=== PATIENT | female | born 2000 | race Caucasian/White ===

== ENCOUNTER 2023-10-04 02:17 | Emergency (ER) | payer MEDICAID ==
[~2023-10-04] VITALS: Ht 167.6 cm; Wt 72.5 kg
[2023-10-04 02:50] VITALS: BP 109/76; PULSE 98; RESP 16; TEMP 98.4; O2SAT 100
[2023-10-04] MEDS: SODIUM CHLORIDE 0.9% 1,000 ML IV ONE (03:15)
[2023-10-04] MEDS: METOCLOPRAMIDE HCL 10MG/2ML VIAL IV ONE (03:15)
[2023-10-04] MEDS: DIPHENHYDRAMINE 50MG/ML VIAL IV ONE (03:15)
[2023-10-04 03:55] LABS: BASOPHILS % 0.3 % (0.0-2.0); EOSINOPHILS % 1.5 % (0.0-5.0); HEMATOCRIT. 35.9 % (36.0-48.0); LYMPHOCYTES % 18.9 % (20.0-50.0); MEAN CORPUSCULAR HEMOGLOBIN 29.5 pg (28.0-32.0); MEAN CORPUSCULAR HGB CONC 33.5 g/dL (31.0-37.0); MEAN PLATELET VOLUME 8.7 fl (7.4-10.4); MONOCYTES % 7.6 % (2.0-8.0); NEUTROPHILS % 71.7 % (40.0-76.0); PLATELET 377 x1000/uL (130-400); RED BLOOD CELL COUNT 4.08 mill/uL (4.2-5.4); RED CELL DISTRIBUTION WIDTH 14.9 % (11.6-14.6); WHITE BLOOD COUNT 10.1 x1000/uL (4.5-11.0)
[2023-10-04] MEDS: KETOROLAC 15MG/ML VIAL IV ONE (04:00)
[2023-10-04 04:10] LABS: ALANINE AMINOTRANSFERASE 26 IU/L (10-49); ALBUMIN 4.8 g/dL (3.2-4.8); ASPARTATE AMINOTRANSFERASE 17 IU/L (<34); BILIRUBIN TOTAL 0.2 mg/dL (0.1-1.0); CARBON DIOXIDE 24 mEq/L (21-32); CHLORIDE 106 mEq/L (98-107); CREATININE 0.7 mg/dL (0.6-1.0); GLUCOSE 120 mg/dL (70-105); POTASSIUM 3.9 mEq/L (3.5-5.1); PROTEIN TOTAL 8.3 g/dL (6.0-8.3); SODIUM 137 mEq/L (136-145); UREA NITROGEN BLOOD 12 mg/dL (9-23)
[2023-10-04] MEDS ORDERED: MECL-299 PO (04:19)
[2023-10-04] MEDS ORDERED: IBUP-2028 MT (04:45)
[2023-10-04 05:12] LABS: HCG SCREEN NEGATIVE
== END 2023-10-04 06:09 | disposition home or self-care (01) ==
LOC: ER 02:17
DX: R51.9 Headache, unspecified (principal)
CPT/HCPCS: 99284; 96374; 96375; 96361; 80053; 81025; 84703; 85025; 36415; J1200; J1885; J2765; J7030